=== PATIENT | female | born 1960 | race Asian ===

== ENCOUNTER 2020-07-01 16:04 | Outpatient (CLI) | payer OTHER ==
[2020-07-02 00:48] LABS: SARS-CoV-2 PCR by NAA Not Detected (NotDetected)
== END 2020-07-01 16:05 | disposition home or self-care (01) ==
LOC: CSHLAB 16:04
PROVIDERS: ATTEND Internal Medicine Gastroenterology
DX: Z20.822 Contact with and (suspected) exposure to COVID-19 (principal); Z12.11 Encounter for screening for malignant neoplasm of colon
CPT/HCPCS: 87635; U0003; U0005